=== PATIENT | male | born 1990 | race African-American/Black ===

== ENCOUNTER 2018-09-10 00:22 | Emergency (ER) | payer SELFPAY ==
[~2018-09-10] VITALS: Ht 157.5 cm; Wt 73.0 kg
[2018-09-10 00:45] VITALS: BP 151/98
[2018-09-10] MEDS ORDERED: BACITRACIN ZINC OINT UDPKT TOP ONE (01:45)
== END 2018-09-10 02:00 | disposition home or self-care (01) ==
LOC: ER 00:22
DX: S60.511A Abrasion of right hand, initial encounter (principal); W19.XXXA Unspecified fall, initial encounter; Y93.9 Activity, unspecified; Y92.9 Unspecified place or not applicable; F17.210 Nicotine dependence, cigarettes, uncomplicated
CPT/HCPCS: 99283